=== PATIENT | male | born 1930 | race Caucasian/White ===

== ENCOUNTER 2018-12-12 10:45 | Outpatient (CLI) | payer MEDICARE ==
[~2018-12-12] VITALS: Ht 172.7 cm; Wt 88.5 kg
[2018-12-12 11:46] LABS: BASOPHILS # (AUTO) 0.1 X10'3 (0-0.2); BASOPHILS % (AUTO) 0.7 % (0-1); EOSINOPHILS # (AUTO) 0.3 X10'3 (0-0.9); EOSINOPHILS % (AUTO) 3.1 % (0-6); LYMPHOCYTES # (AUTO) 1.1 X10'3 (1.1-4.8); MEAN CORPUSCULAR HEMOGLOBIN 30.9 PG (27.0-31.0); MEAN CORPUSCULAR HGB CONC 33.8 g/dL (33.0-36.5); MEAN CORPUSCULAR VOLUME 91.6 FL (78-98); MONOCYTES # (AUTO) 0.8 X10'3 (0-0.9); MONOCYTES % (AUTO) 9.7 % (2-12); NEUTROPHILS % (AUTO) 73.5 % (42-75); PRE OP HEMATOCRIT 45.9 % (42.0-52.0); PRE OP HEMOGLOBIN 15.5 g/dL (14.0-17.9); PRE OP PLATELET COUNT 221 X10'3 (140-440); RED BLOOD COUNT 5.01 X10'6 (4.70-6.10); RED CELL DISTRIBUTION WIDTH 13.7 % (11.5-14.5)
[2018-12-12 11:49] LABS: CLARITY,URINE CLEAR (Clear); COLOR,URINE YELLOW (Yellow); GLUCOSE, URINE NEGATIVE (Neg); KETONES,URINE NEGATIVE (Neg); LEUKOCYTE ESTERASE ,URINE NEGATIVE (Neg); NITRITES, URINE NEGATIVE (Neg); OCCULT BLOOD,URINE NEGATIVE (Neg); PH,URINE 5.5 (4.8-8.0); PROTEIN,URINE NEGATIVE (Neg); UROBILINOGEN,URINE 0.2 E.U/dL (0.2-1.0)
[2018-12-12 11:50] LABS: UA COLLECTION TYPE CLN CATCH MIDSTREAM
[2018-12-12 12:03] LABS: PRE OP PROTIME 10.4 SECONDS (9.0-12.0)
[2018-12-12 12:16] LABS: ALBUMIN 3.8 G/DL (3.4-5.0); ALKALINE PHOSPHATASE 113 IU/L (46-116); BLOOD UREA NITROGEN 25 MG/DL (7-18); BUN/CREATININE RATIO 22.7 (5.4-32.0); CALCIUM 9.2 MG/DL (8.5-10.1); CHLORIDE 105 MMOL/L (99-107); PRE OP ALT 28 U/L (30-65); PRE OP ANION GAP 12 (8-16); PRE OP AST 20 U/L (10-37); PRE OP BILIRUB, TOTAL 0.5 MG/DL (0.0-1.0); PRE OP GLUCOSE 87 MG/DL (70-104); PRE OP POTASSIUM 4.5 MMOL/L (3.4-5.1); PRE OP SODIUM 141 MMOL/L (135-145); TOTAL CARBON DIOXIDE 24.4 MMOL/L (24-32); TOTAL PROTEIN 7.6 G/DL (6.4-8.2); eGFR 63 ML/MIN
[2018-12-12] MEDS ORDERED: PRAV20TA4 PO (12:58)
[2018-12-12] MEDS ORDERED: CLOP75TA35 PO (12:58)
[2018-12-12] MEDS ORDERED: COLC0.6C3 PO (12:58)
[2018-12-12] MEDS ORDERED: ALLO300T8 PO (12:58)
[2018-12-12] MEDS ORDERED: EZET10TA26 PO (12:58)
[2018-12-12] MEDS ORDERED: LISI-604 PO (12:58)
[2018-12-12] MEDS ORDERED: ASPI-611 PO (12:58)
[2018-12-12] MEDS ORDERED: LEVO150T8 (12:58)
[2018-12-14] MEDS ORDERED: ringers solution, lacted 1,000 ML IV SCH (05:00)
[2018-12-14] MEDS ORDERED: cefazolin/dext.iso 2gm/100 ML IV ONE (05:30)
[2018-12-14] MEDS ORDERED: cefazolin/dext.iso 2gm/50ml 50 ML IV ONE (05:30)
[2018-12-14] MEDS ORDERED: famotidine 20mg tablet PO ONE (05:30)
[2018-12-15] MEDS ORDERED: cefazolin/dext.iso 2gm/50ml 50 ML IV ONE (05:00)
[2018-12-15] MEDS ORDERED: famotidine 20mg tablet PO ONE (05:00)
[2018-12-15] MEDS ORDERED: ringers solution, lacted 1,000 ML IV SCH (05:00)
== END 2018-12-12 23:59 | disposition home or self-care (01) ==
LOC: PRE-OP 10:45 → EDSTATUS 12-14 10:00
PROVIDERS: ATTEND Surgery
DX: Z01.818 Encounter for other preprocedural examination (principal); I65.21 Occlusion and stenosis of right carotid artery; J98.4 Other disorders of lung; Z86.73 Personal history of transient ischemic attack (TIA), and cerebral infarction without residual deficits; Z79.82 Long term (current) use of aspirin; Z87.891 Personal history of nicotine dependence
CPT/HCPCS: 36415; 71046; 80053; 81003; 84443; 85025; 85610; 85730; 86885; 86900; 86901; 87070; J0690; J7120

== ENCOUNTER 2018-12-19 11:32 | Inpatient (IN) | payer MEDICARE | END 2018-12-21 16:04 | disposition home or self-care (01) | LOC: PAS IN 11:32 → CICU 2S 20:15 → SUR 3N 12-20 13:05 | PROC: 03CH0ZZ Extirpation of Matter from Right Common Carotid Artery, Open Approach (ICD-10-PCS; principal; 2018-12-19 18:05) | PROC: 03UH0KZ Supplement Right Common Carotid Artery with Nonautologous Tissue Substitute, Open Approach (ICD-10-PCS; 2018-12-19 18:05) | DX: I65.21 Occlusion and stenosis of right carotid artery (principal) ==